=== PATIENT | female | born 1960 | race Caucasian/White ===

== ENCOUNTER 2020-11-09 13:36 | Outpatient (CLI) | payer BC, SELFPAY ==
--- NOTE | 2020-11-09 | ECHO_ITS ---
Patient Info Name: Sybil Conteh Age: 60 years : 1960 Gender: Female Ht: 63 in Wt: 210 lbs BSA: 2.10 m2 HR: 69 bpm BP: 150 / 97 mmHg Heart Rhythm: Sinus Rhythm Exam Date: 11/09/2020 2:10 PM Exam Location: [facility] Patient Status: Outpatient Admit Date: 11/09/2020 Staff Ordering Physician: Chaz, Vamsi LUNDBERG [employer]: Roldan Phillips, TAMIKO, RT Attending Provider: Chaz, Vamsi LUNDBERG Exam Type: CA echo doppler color flow Study Info Indications R01.1 - Cardiac murmur, unspecified Complete two-dimensional, color flow and Doppler transthoracic echocardiogram is performed. Strain analysis performed. Summary 1. Complete two-dimensional, color flow and Doppler transthoracic echocardiogram is performed. 2. Left ventricular systolic function is normal, estimated at 65-70%. 3. There is mildly increased left ventricular wall thickness. 4. The left ventricular diastolic function is grade I diastolic dysfunction. 5. There is trace mitral valve regurgitation. 6. There is trace tricuspid valve regurgitation. 7. No pulmonary hypertension, estimated pulmonary arterial systolic pressure is 34 mmHg. Left Ventricle Left ventricular chamber dimension is normal. Left ventricular systolic function is normal, estimated at 65-70%. There is mildly increased left ventricular wall thickness. The left ventricular diastolic function is grade I diastolic dysfunction. Global longitudinal strain is mildly elevated at -17 %. Right Ventricle Right ventricular chamber dimension is normal. Right ventricular systolic function is normal. Left Atria Left atrial chamber dimension is normal. Right Atria Right atrial chamber dimension is normal. Aortic Valve The aortic valve is not well visualized. There is mild aortic valve sclerosis. There is no aortic valve stenosis. There is no aortic valve regurgitation. Pulmonic Valve The pulmonic valve is not well visualized. Mitral Valve The mitral valve has normal leaflets. There is trace mitral valve regurgitation. The mitral valve annulus is mildly calcified. Tricuspid Valve The tricuspid valve leaflets are normal. There is trace tricuspid valve regurgitation. No pulmonary hypertension, estimated pulmonary arterial systolic pressure is 34 mmHg. Pericardium/Pleural The pericardium appears epicardial fat pad. There is no pericardial effusion. Aorta The aortic root size at the sinus of Valsalva is normal. Left Ventricular Outflow Tract Name Value Normal LVOT 2D LVOT Diameter 2.0 cm LVOT Doppler LVOT Peak Gradient 6 mmHg LVOT Mean Gradient 3 mmHg LVOT VTI 30 cm LVOT VTI/AV VTI Ratio 0.8 LVOT Stroke Volume 91 ml LVOT CO 5.1 l/min LVOT CI 2.4 l/min/m2 Mitral Valve Name Value Normal
== END 2020-11-09 13:37 | disposition home or self-care (01) ==
LOC: ANHCARD 13:38
PROVIDERS: PCP Physician Assistant; Visit Provider Physician Assistant
DX: R01.1 Cardiac murmur, unspecified (principal)
CPT/HCPCS: 93306

== ENCOUNTER 2020-11-10 09:32 | Outpatient (CLI) | payer BC, SELFPAY ==
--- NOTE | ~2020-11-10 | MR_ITS ---
EXAMINATION: MR brain IAC wo/w con DATE: 11/10/2020 10:32 INDICATION: Vertigo. TECHNIQUE: Magnetic resonance imaging (MRI) of the brain, brainstem, and internal auditory canals was performed without and with 19 mL MultiHance intravenous contrast. Sequences included sagittal and ax ial T1-weighted FSE, axial diffusion-weighted FS EPI, axial T2*-weighted GRE, axial T2-weighted FLAIR Propeller, axial T2-weighted Propeller, small bwvmj-nx-ljhy coronal FIESTA, small niwtg-fx-igdy peña nal T1-weighted FSE, and small qnqoo-mt-wuns axial T1-weighted SPGR. Postcontrast sequences included axial T1-weighted FSE, small xcocx-ye-orrm coronal T1-weighted FSE, and small imcup-lp-jhhq axial T1- weighted SPGR. Apparent diffusion coefficient (ADC) maps were created. COMPARISON: None. FINDINGS: There are scattered areas of nonspecific increased T2-weighted signal intensity in the cere bral white matter. There is a small area cystic encephalomalacia in the left frontoparietal deep whit e matter. There is no intracranial hemorrhage, acute infarction, or abnormal intracranial mass lesion . The ventricles are normal in size. There is a trace right mastoid effusion. The internal auditory c anals and inner and middle ears are normal. There is mild mucosal thickening in left maxillary sinus. The orbits are normal. IMPRESSION: 1. Small area of chronic cystic encephalomalacia in the left frontoparietal deep white matter. 2. Mild nonspecific cerebral white matter disease, which likely represents chronic small vessel ische gracie disease. Reviewed, dictated and finalized at location A. IMPRESSION: 1. Small area of chronic cystic encephalomalacia in the left frontoparietal lyric p white matter. 2. Mild nonspecific cerebral white matter disease, which likely represents scientist electronics milo small vessel ischemic disease.
[2020-11-10 09:58] LABS: Estimated Glomerular Filt Rate > 60
== END 2020-11-10 09:33 ==
PROVIDERS: PCP Physician Assistant; Visit Provider Physician Assistant
DX: R42 Dizziness and giddiness (principal); R93.0 Abnormal findings on diagnostic imaging of skull and head, not elsewhere classified
CPT/HCPCS: 70553; A9577

== ENCOUNTER 2020-11-16 11:26 | Outpatient (CLI) | payer BC, SELFPAY ==
--- NOTE | ~2020-11-16 | US_ITS ---
EXAMINATION: US carotid duplex BI DATE: 11/16/2020 11:57 INDICATION: Left frontoparietal infarct. Vertigo. TECHNIQUE: Grayscale, color Doppler, and pulsed Doppler images of the cervical carotid arteries were obtained. The degree of vessel stenosis is placed in one of the following categories: normal, <50%, 5 0-69%, >=70% but less than near-occlusion, near-occlusion, or total occlusion. Note that percent sten osis relative to normal distal artery lumen diameter is indirectly measured from velocity measurement s as described by Emir, et al. Radiology 2003; 229:340-346. COMPARISON: None. FINDINGS: RIGHT: The right common carotid artery (CCA) peak systolic velocity (PSV) is 93 cm/s. The right internal car otid artery (ICA) PSV is 64 cm/s. The right ICA end-diastolic velocity (EDV) is 20 cm/s. The right IC A/CCA PSV ratio is 1.0. Grayscale and color Doppler images yield an estimate of <50% diameter reducti on from plaque in the ICA. There is antegrade flow in the right vertebral artery. LEFT: The left CCA PSV is 60 cm/s. The left ICA PSV is 82 cm/s. The left ICA EDV is 21 cm/s. The left ICA/C CA PSV ratio is 1.3. Grayscale and color Doppler images yield an estimate of <50% diameter reduction from plaque in the ICA. There is antegrade flow in the left vertebral artery. IMPRESSION: 1. <50% stenosis in the right internal carotid artery. 2. <50% stenosis in the left internal carotid artery. Reviewed, dictated and finalized at location A.
== END 2020-11-16 11:27 ==
PROVIDERS: PCP Physician Assistant; Visit Provider Physician Assistant
DX: E78.2 Mixed hyperlipidemia (principal); R42 Dizziness and giddiness; I65.23 Occlusion and stenosis of bilateral carotid arteries
CPT/HCPCS: 93880

== ENCOUNTER 2023-12-18 13:08 | Emergency (ER) | payer BC, SELFPAY ==
--- NOTE | ~2023-12-18 | XR_ITS ---
EXAMINATION: XR chest 2V DATE: 12/18/2023 13:46 INDICATION: Chest pain. TECHNIQUE: Frontal and lateral views of the chest were obtained. COMPARISON: Chest 2 views 10/01/2013 FINDINGS: There is no pneumonia, pleural effusion, or pneumothorax. The heart size is normal. There a re prominent pericardial fat pads. IMPRESSION: 1. No acute cardiopulmonary disease. Reviewed, dictated and finalized at location A.
--- NOTE | 2023-12-18 13:09 | ECG_ITS ---
Test Date: 2023-12-18 16:19:08 Measurements Intervals [place] Rate: 97 P: 19 NH: 168 QRS: -23 QRSD: 98 T: 51 QT: 337 QTc: 428 Interpretive Statements SINUS RHYTHM POSSIBLE LEFT ATRIAL ENLARGEMENT LEFT VENTRICULAR HYPERTROPHY AND ST-T CHANGE ANTEROLATERAL INFARCT, AGE INDETERMINATE BASELINE ARTIFACT- I, II, AVR, AVL, AVF, V1-V6 ABNORMAL ECG No previous ECG available for comparison Electronically Signed On 12-18-2023 16:21:54 CDT by Guido Bright D.O.
[2023-12-18 13:30] VITALS: BP 166/112; PULSE 96; RESP 20; TEMP 36.4; O2SAT 95
--- NOTE | 2023-12-18 13:35 | ED.CHESTPAIN ---
HPI - Chest Pain General Chief Complaint: Chest Pain Stated Complaint: chest pain Focused HPI: 63-year-old female with reported history of [place] presents to the emergency department for chest pain that radiates to her left arm. States the pain woke her up out of her sleep and lasted approximately 1 hour at 2:00 a.m.. She then went back to sleep and woke up this morning and has been intermittent since. States she feels like there is a knot in her chest and neck and radiates to her left arm with numbness and tingling. She reports associated nausea and diaphoresis. Denies vomiting or syncope, abdominal pain, cough or congestion, fever. States she had a cardiac catheterization performed in 2013 which showed no significant blockages and no stents needed. GENERAL: Well-appearing, well-nourished, and in no acute distress. HEAD: Normocephalic, atraumatic. CHEST: Clear to auscultation. ?No respiratory distress. HEART: Regular rate and rhythm.? NEURO: ?Alert and oriented x3. Patient screened in triage and initial orders placed.? ?Additional care and disposition to be based upon?diagnostic testing and treatment. Related Data Allergies Allergy/AdvReac Type Severity Reaction Status Date / Time codeine Allergy Mild SEVERE Unverified 12/18/23 13:08 NAUSEA AND VOMITING Course Vital Signs Vital signs: Vital Signs Temperature 97.5 F L 12/18/23 13:30 Pulse Rate 96 12/18/23 13:30 Respiratory Rate 20 12/18/23 13:30 Blood Pressure 166/112 H 12/18/23 13:30 Pulse Oximetry 95 12/18/23 13:30 Oxygen Delivery Room Air 12/18/23 13:30 Temperature 97.5 F L 12/18/23 13:30 Pulse Rate 96 12/18/23 13:30 Respiratory Rate 20 12/18/23 13:30 Blood Pressure 166/112 H 12/18/23 13:30 Pulse Oximetry 95 12/18/23 13:30 Oxygen Delivery Room Air 12/18/23 13:30 MDM - Chest Pain Lab Data 12/18/23 13:39 12/18/23 13:39 Labs: Lab Results 12/18/23 12/18/23 Range/Units 13:39 16:16 WBC 11.2 H (4.5-10.0) K/mm3 RBC 5.12 (4.2-5.4) M/mm3 Hgb 16.2 H (12.0-15.0) g/dL Hct 48.2 H (37.0-47.0) % MCV 94.1 (80-100) fl MCH 31.6 (26-34) pg MCHC 33.6 (32-36) g/dl RDW 13.1 (11.5-14.5) % Plt Count 263 (150-375) k/mm3 MPV 9.7 (7.4-10.4) fl Immature Gran % (Auto) 0.4 (0-0.5) % Neut % (Auto) 64.8 (45.5-73.1) % Lymph % (Auto) 22.0 (18.3-44.2) % Stokes % (Auto) 7.9 (2.6-8.5) % Eos % (Auto) 4.1 (0-4.4) % Baso % (Auto) 0.8 (0.2-1.2) % Lymph # (Auto) 2.47 (0.9-3.2) K/mm3 Stokes # (Auto) 0.9 H (0.1-0.6) K/mm3 Eos # (Auto) 0.5 H (0-0.3) K/mm3 Baso # (Auto) 0.1 (0.0-0.1) K/mm3 Abs Immat Gran (auto) 0.05 H (0.00-0.031) K/mm3 Absolute Neuts (auto) 7.3 H (1.3-6.7) K/mm3 Absolute Nucleated RBC 0.000 (0.0-0.012) K/mm3 Nucleated RBC % 0.0 (0.0-0.2) % PT 12.6 (11.1-14.7) Seconds INR 0.9 APTT 28.8 (22.3-36.8) Seconds Sodium 136 L (137-145) mmol/L Potassium 3.8 (3.4-5.0) mmol/L Chloride 100 (98-107) mmol/L Carbon Dioxide 22 (22-30) mmol/L Anion Gap 14 H (4-12) mmol/L BUN 8 (7-17) mg/dL Creatinine 0.50 L (0.7-1.0) mg/dL Estim Creat Clear Calc 107 ml/min Estimated GFR > 60 (59 - ) Glucose 117 H (65-110) mg/dL Calcium 9.4 (8.4-10.2) mg/dL Total Bilirubin 0.4 (0.2-1.3) mg/dL AST 50 H (14-36) U/L ALT 44 H (6-35) U/L Alkaline Phosphatase 73 (38-126) U/L Troponin I < 0.012 < 0.012 (0.000-0.034) ng/mL Total Protein 8.0 (6.3-8.2) g/dL Albumin 4.8 (3.5-5.1) g/dL Lipase 110 (23-300) U/L Discharge Plan Discharge Clinical Impression: Chest pain Patient Disposition: Elopement After Seen by Prov Condition: Stable Follow-up/Referrals: Chaz,TAMIKA Burgess [Primary Care Provider] -
[2023-12-18 13:46] LABS: Basophils Absolute Auto 0.1 K/mm3 (0.0-0.1); Basophils Percent Auto 0.8 % (0.2-1.2); Eosinophils Absolute Auto 0.5 K/mm3 (0-0.3); Eosinophils Percent Auto 4.1 % (0-4.4); Hematocrit 48.2 % (37.0-47.0); Hemoglobin 16.2 g/dL (12.0-15.0); Immature Granulocyte Absolute 0.05 K/mm3 (0.00-0.031); Immature Granulocyte Percent A 0.4 % (0-0.5); Lymphocytes Absolute Auto 2.47 K/mm3 (0.9-3.2); Mean Corpuscular HGB Conc 33.6 g/dl (32-36); Mean Corpuscular Hemoglobin 31.6 pg (26-34); Mean Corpuscular Volume 94.1 fl (80-100); Mean Platelet Volume 9.7 fl (7.4-10.4); Monocytes Absolute Auto 0.9 K/mm3 (0.1-0.6); Monocytes Percent Auto 7.9 % (2.6-8.5); Neutrophils Absolute Auto 7.3 K/mm3 (1.3-6.7); Neutrophils Percent Auto 64.8 % (45.5-73.1); Platelet Count Result 263 k/mm3 (150-375); Red Blood Count 5.12 M/mm3 (4.2-5.4); Red Cell Distribution Width 13.1 % (11.5-14.5); White Blood Count 11.2 K/mm3 (4.5-10.0)
[2023-12-18 13:59] LABS: Alanine Aminotransferase 44 U/L (6-35); Albumin Level 4.8 g/dL (3.5-5.1); Alkaline Phosphatase 73 U/L (38-126); Anion Gap 14 mmol/L (4-12); Aspartate Amino Transferase 50 U/L (14-36); Bilirubin,Total 0.4 mg/dL (0.2-1.3); Blood Urea Nitrogen 8 mg/dL (7-17); Calcium 9.4 mg/dL (8.4-10.2); Carbon Dioxide 22 mmol/L (22-30); Chloride 100 mmol/L (98-107); Estimated CRCL calculation 107 ml/min; Estimated Glomerular Filt Rate > 60; Glucose 117 mg/dL (65-110); Lipase 110 U/L (23-300); Potassium 3.8 mmol/L (3.4-5.0); Sodium 136 mmol/L (137-145)
[2023-12-18 14:05] LABS: INR 0.9; Partial Thromboplastin Time 28.8 Seconds (22.3-36.8); Prothrombin Time 12.6 Seconds (11.1-14.7)
[2023-12-18 14:10] LABS: Troponin I < 0.012 ng/mL (0.000-0.034)
[2023-12-18 16:57] LABS: Troponin I < 0.012 ng/mL (0.000-0.034)
--- NOTE | 2023-12-18 19:20 | PC.NURSE ---
patient called X3 for repeat troponin with no answer
== END 2023-12-18 19:20 | disposition left against medical advice (07) ==
PROVIDERS: Student in an Organized Health Care Education/Training Program; Emergency Provider Physician Assistant; PCP Physician Assistant
DX: R07.9 Chest pain, unspecified (principal); I51.7 Cardiomegaly; R94.31 Abnormal electrocardiogram [ECG] [EKG]
CPT/HCPCS: 36415; 71046; 80053; 83690; 84484; 85025; 85610; 85730; 93005; 99284

== ENCOUNTER 2024-01-03 12:02 | Outpatient (CLI) | payer BC, SELFPAY ==
--- NOTE | ~2024-01-03 | XR_ITS ---
XR hand RT 2V Ordering provider: Kaye Best, TAMIKA History: . Positive TAD, Polyarthralgia . Comparison: The FINDINGS: BONES: No acute fracture or dislocation. JOINT SPACES: Osteoarthritic changes of the first carpometacarpal joint. Osteoarthritic changes of th e distal interphalangeal joints of the second and third fingers. Radiation SOFT TISSUES: Normal. IMPRESSION: No acute osseous abnormality right hand. Polyarticular osteoarthritic changes. 3 no Reviewed, dictated and finalized at location A.
--- NOTE | ~2024-01-03 | XR_ITS ---
XR foot RT min 3V 01/03/2024 12:25 Indication: Polyarthralgias Procedure: 4 views right foot Comparison: No prior studies for comparison. Findings: There is anatomic alignment. Mild osteoarthritis of the first MTP joint. Lisfranc joint int act. No erosive changes. No fracture or traumatic malalignment. There are small degenerative calcanea l enthesophytes. Impression: 1: No significant bone or joint abnormality. Reviewed, dictated and finalized at location B. Impression: 1: No significant bone or joint abnormality.
--- NOTE | ~2024-01-03 | XR_ITS ---
XR foot LT min 3V 01/03/2024 12:25 INDICATION: Left foot pain PROCEDURE: 4 views left foot COMPARISON: No prior studies for comparison. FINDINGS: Fracture, dislocation or subluxation is not identified. Lisfranc joint intact. The soft tis sues appear within normal limits. No foreign bodies are identified. There is prominent degenerative calcaneal enthesophyte at the plantar surface. IMPRESSION: 1: NO ACUTE BONE OR JOINT ABNORMALITY IDENTIFIED. Reviewed, dictated and finalized at location B.
--- NOTE | ~2024-01-03 | XR_ITS ---
XR hand LT 2V Ordering provider: Kaye Best, TAMIKA History: . Positive TAD, Polyarthralgia . Comparison: None. FINDINGS: BONES: No acute fracture or dislocation. Cystic changes seen in the scaphoid medially. JOINT SPACES: Osteoarthritic changes of the first carpometacarpal joint is noted. Narrowing of the di stal interphalangeal joints. SOFT TISSUES: Unremarkable. IMPRESSION: No acute osseous abnormality left hand. Polyarticular osteoarthritic changes. Reviewed, dictated and finalized at location A.
== END 2024-01-03 12:03 | disposition home or self-care (01) ==
PROVIDERS: PCP Physician Assistant; Visit Provider Physician Assistant
DX: M19.042 Primary osteoarthritis, left hand (principal); M19.041 Primary osteoarthritis, right hand; M79.672 Pain in left foot; M79.671 Pain in right foot; R76.8 Other specified abnormal immunological findings in serum
CPT/HCPCS: 73120; 73630

== ENCOUNTER 2025-01-28 12:19 | Outpatient (CLI) | payer BC, SELFPAY ==
--- NOTE | ~2025-01-28 | XR_ITS ---
EXAMINATION: XR hip RT min 2V, 01/28/2025 12:30 CDT HISTORY: RT SIDED LBP SACRUM/COCCYX PAIN FALL 1 WK AGO COMPARISON: No comparisons available. Findings: No acute fracture or malalignment. Moderate degenerative changes noted with calcific tendinopathy, there is a probable remote avulsion fracture arising from the inferior pubic ramus but incompletely characterized. Soft tissues unremarkable. Impression: No acute fracture. Probable sequelae of previous trauma versus severe calcific tendinopathy. Correlation with CT or MRI is recommended Reviewed, dictated and finalized at location P. Impression: No acute fracture. Probable sequelae of previous trauma versus severe calcific tendinopathy. Correlation with CT or MRI is recommended
--- NOTE | ~2025-01-28 | XR_ITS ---
XR lumbar spine 2-3V Indication: RT SIDED LBP SACRUM/COCCYX PAIN AFTER FALL 1 WK AGO Comparison: None Findings: Grade 1 anterolisthesis L4 on L5 with grade 1 retrolisthesis L2 on L3, no acute fracture. Moderate to severe loss of disc height throughout most marked at L1-2 and L2-3. Soft tissues unremarkable Impression: No acute abnormality. Reviewed, dictated and finalized at location P. Impression: No acute abnormality.
== END 2025-01-28 12:20 | disposition home or self-care (01) ==
LOC: MICIMG 12:21
PROVIDERS: PCP Physician Assistant; Visit Provider Physician Assistant
DX: M25.551 Pain in right hip (principal); M54.50 Low back pain, unspecified
CPT/HCPCS: 72100; 73502